=== PATIENT | male | born 1965 | race Caucasian/White ===

== ENCOUNTER 2024-03-12 10:58 | Inpatient (IN) | payer OTHER ==
[2024-03-12 11:30] VITALS: BMI 24.3
[2024-03-12] MEDS ORDERED: ACETAMINOPHEN 325 MG TABLET (FP) PO PRN (11:50)
[2024-03-12] MEDS ORDERED: MAG HYDROX/AL HYDROX/SIMETH 30 ML UNIT-DOSE CUP PO PRN (11:50)
[2024-03-12] MEDS ORDERED: guaiFENesin 600 MG TABLET.ER (FP) PO PRN (11:50)
[2024-03-12] MEDS ORDERED: BENZONATATE 200 MG CAPSULE PO PRN (11:50)
[2024-03-12] MEDS ORDERED: BENZOCAINE/MENTHOL (CHLORASEPTIC ) LOZENGE MM PRN (11:50)
[2024-03-12] MEDS ORDERED: IBUPROFEN 600 MG TABLET (FP) PO PRN (11:50)
[2024-03-12] MEDS ORDERED: LOPERAMIDE HCL 2 MG CAPSULE PO PRN (11:50)
[2024-03-12] MEDS ORDERED: POLYETHYLENE GLYCOL (HEALTHYLAX) 3350 17 GM PACKET PO PRN (11:50)
[2024-03-12] MEDS ORDERED: DICYCLOMINE HCL 10 MG CAPSULE PO PRN (11:50)
[2024-03-12] MEDS ORDERED: NALOXONE (NARCAN) HCL 4 MG/0.1 ML SPRAY NS PRN (11:50)
[2024-03-12] MEDS ORDERED: IBUPROFEN 400 MG TABLET (FP) PO PRN (11:50)
[2024-03-12] MEDS ORDERED: MAGNESIUM HYDROX 2400MG/30ML ORAL SUSPENSION 30 ML CUP PO PRN (11:50)
[2024-03-12] MEDS ORDERED: BISMUTH SUBSALICYLATE 524 MG/30 ML PO PRN (11:50)
[2024-03-12] MEDS ORDERED: NALOXONE HCL 0.4 MG/ML VIAL IM PRN (11:50)
[2024-03-12] MEDS ORDERED: PRENATAL VITAMINS W/ FOLIC ACID TABLET (FP) PO ONE (12:46)
[2024-03-12] MEDS: metoPROLOL SUCCINATE 25 MG TAB.SR.24H (FP) PO ONE (12:47)
[2024-03-12] MEDS: PRENATAL VITAMINS W/ FOLIC ACID TABLET (FP) PO SCH (12:47)
[2024-03-12] MEDS ORDERED: ONDANSETRON *ODT* 4 MG TABLET ONE (12:56)
[2024-03-12] MEDS: ONDANSETRON *ODT* 4 MG TABLET SL PRN (12:56)
[2024-03-12] MEDS: diazePAM 5 MG TABLET PO PRN (12:59)
[2024-03-12] MEDS ORDERED: diazePAM 5 MG TABLET ONE (12:59)
[2024-03-12] MEDS: diazePAM 5 MG TABLET PO SCH (16:43)
[2024-03-12] MEDS: hydrOXYzine PAMOATE 25 MG CAPSULE (FP) PO PRN (16:43)
[2024-03-12] MEDS: THIAMINE 100 MG TABLET PO SCH (22:08)
[2024-03-12] MEDS: MELATONIN 5 MG TABLETS PO SCH (22:08)
[2024-03-13 09:23] LABS: HEMOGLOBIN 14.9 GM/dL (11.7-16.9); MCH 30.9 pg (25.7-33.7); MCHC 33.9 g/dl (32.0-35.9); MEAN CELL VOLUME 91.1 fl (80-96); MEAN PLT VOLUME 8.3 fl (7.5-11.1); PLATELET COUNT 260 10^3/uL (134-434); RBC 4.83 M/mm3 (4.00-5.60); RDW 14.2 % (11.9-15.9); WHITE BLOOD COUNT 8.2 K/mm3 (4.0-10.0)
[2024-03-13 09:28] LABS: POTASSIUM 3.8 mmol/L (3.5-5.1)
[2024-03-13 09:34] LABS: CALCIUM 9.1 mg/dL (8.5-10.1)
[2024-03-13 09:35] LABS: BLOOD UREA NITROGEN 9.6 mg/dL (7-18)
[2024-03-13 09:38] LABS: CREATININE 0.8 mg/dL (0.55-1.3)
[2024-03-13 09:39] LABS: BILIRUBIN,TOTAL 0.6 mg/dL (0.2-1); TOT PROT 7.5 g/dl (6.4-8.2)
[2024-03-14] MEDS: diazePAM 5 MG TABLET PO SCH (05:37)
[2024-03-14] MEDS: METHOCARBAMOL 500 MG TABLET PO PRN (22:14)
[2024-03-15] MEDS: diazePAM 5 MG TABLET PO SCH (05:38)
[2024-03-15 20:59] VITALS: RESP 16
[2024-03-16] MEDS: diazePAM 5 MG TABLET PO ONE (05:30)
[2024-03-16 08:55] VITALS: BP 141/91; PULSE 77; TEMP 98.2
== END 2024-03-16 10:50 | disposition home or self-care (01) | DRG 775 ==
LOC: YASAS 10:58 → Y3N 13:18
PROVIDERS: ADMIT Allergy & Immunology; ATTEND Surgery
DX: F10.230 Alcohol dependence with withdrawal, uncomplicated (principal); F32.A Depression, unspecified; Z88.0 Allergy status to penicillin
CPT/HCPCS: 36415; 80053; 80305; 80307; 85027; 86780; Q0162